=== PATIENT | male | born 1965 | race Caucasian/White ===

== ENCOUNTER → 2017-01-16 | Outpatient (CLI) | payer MEDICAID ==
[~2017-01-16] MED LIST: ASPI-496 PO; CARV-39 PO; CYCL5TAB PO; FURO20TA3 PO; HYDR-3307 PO; LISI-170 PO; POTA10TA5 PO; PRAV80TA2 PO
[2017-01-16 12:11] LABS: HEMOGLOBIN 12.4 g/dL (13.7-18.0)
[2017-01-16 12:20] LABS: ASPARTATE AMINO TRANSFERASE 22 U/L (15-37); BLOOD UREA NITROGEN 14 mg/dL (7-18)
== END | disposition home or self-care (01) ==
LOC: STAR 10:50
PROVIDERS: ATTEND Orthopaedic Surgery Orthopaedic Surgery of the Spine
DX: Z01.818 Encounter for other preprocedural examination (principal); J98.6 Disorders of diaphragm; M48.02 Spinal stenosis, cervical region; Z86.79 Personal history of other diseases of the circulatory system
CPT/HCPCS: 36415; 71020; 80053; 81003; 85025; 85610; 85730; 93005

== ENCOUNTER 2018-01-07 09:35 | Observation (INO) | payer MEDICAID, OTHER ==
[~2018-01-07] VITALS: Ht 188 cm; Wt 159.8 kg
[~2018-01-07 09:35] MED LIST changes: +CEPH-368 PO
[2018-01-07] MEDS ORDERED: SODIUM CHLORIDE 0.9% 1,000 ML IV ONE (10:03)
[2018-01-07 10:11] VITALS: BP 125/66
[2018-01-07] MEDS ORDERED: ASPI-621 PO (10:16)
[2018-01-07] MEDS ORDERED: UBID100C41 PO (10:16)
[2018-01-07] MEDS ORDERED: ISOS30TA8 PO (10:18)
[2018-01-07] MEDS ORDERED: PLEASE ENTER HEIGHT AND WEIGHT MC SCH (10:30)
[2018-01-07] MEDS ORDERED: MIDAZOLAM 1 MG/ML, 5ML ONE (10:53)
[2018-01-07] MEDS ORDERED: BIVALIRUDIN 250 MG ONE ×2 (10:53→11:15)
[2018-01-07] MEDS ORDERED: VERAPAMIL 2.5 MG/ML, 2ML ONE (10:53)
[2018-01-07] MEDS ORDERED: FENTANYL PF 100 MCG/2ML ONE (10:53)
[2018-01-07] MEDS ORDERED: TICAGRELOR 90 MG TABLET ONE (10:53)
[2018-01-07] MEDS ORDERED: HEPARIN 1,000 UNITS/ML, 10ML ONE (10:53)
[2018-01-07] MEDS ORDERED: LIDOCAINE 2%, 20ML ONE (10:54)
[2018-01-07] MEDS ORDERED: DIPHENHYDRAMINE 50 MG/ML, 1ML ONE (11:01)
[2018-01-07] MEDS ORDERED: MIDAZOLAM 1 MG/ML, 2ML ONE (11:15)
[2018-01-07 14:30] VITALS: BP 110/61
[2018-01-07 19:40] VITALS: BP 120/69
[2018-01-07] MEDS: CARVEDILOL 25 MG TABLET PO SCH (20:43)
[2018-01-07] MEDS ORDERED: PRAVASTATIN 40 MG TABLET PO SCH (21:00)
[2018-01-07] MEDS ORDERED: TICAGRELOR 90 MG TABLET PO SCH (21:00)
[2018-01-08 01:46] VITALS: BP 108/64
[2018-01-08 07:32] VITALS: BP 131/84
[2018-01-08] MEDS ORDERED: NITR0.4T28 SL (08:22)
[2018-01-08] MEDS ORDERED: CLOP75TA52 PO (08:22)
[2018-01-08] MEDS ORDERED: CLOPIDOGREL 300 MG TABLET PO ONE (08:30)
[2018-01-08] MEDS ORDERED: ISOSORBIDE MONONITRATE ER 30 MG TABLET PO SCH (09:00)
[2018-01-08] MEDS ORDERED: LISINOPRIL 20 MG TABLET PO SCH (09:00)
[2018-01-08] MEDS ORDERED: ASPIRIN 81 MG TABLET EC PO SCH (09:00)
[2018-01-08] MEDS ORDERED: FUROSEMIDE 20 MG TABLET PO SCH (09:00)
[2018-01-08] MEDS ORDERED: CLOPIDOGREL 75 MG TABLET PO SCH (09:00)
[2018-01-08] MEDS ORDERED: POTASSIUM CHLORIDE 10 MEQ TABLET.ER PO SCH (09:00)
[2018-01-08] MEDS: CARVEDILOL 25 MG TABLET PO SCH (09:22)
== END 2018-01-08 10:14 | disposition home or self-care (01) ==
LOC: CACL 09:35 → ORIP 11:59 → 5SO 12:32 → DCLOUNGE 01-08 09:55
PROVIDERS: ADMIT Internal Medicine Cardiovascular Disease; ATTEND Internal Medicine Cardiovascular Disease
DX: I25.10 Atherosclerotic heart disease of native coronary artery without angina pectoris (principal); I10 Essential (primary) hypertension; E78.00 Pure hypercholesterolemia, unspecified; R60.0 Localized edema
CPT/HCPCS: 93458; 99156; 99157; C1725; C1769; C1874; C1887; C1894; C9600; C9601; G0378; J0583; J1200; J1644; J2250; J3010; J3490; Q9967

== ENCOUNTER → 2020-08-10 | Outpatient (CLI) | payer BC, OTHER ==
[~2020-08-10] MED LIST changes: +ASPI81TA45 PO; +CLOP75TA52 PO; +HYDR-3246 PO; -HYDR-3307 PO; +ISOS30TA8 PO; +NITR0.4T28 SL; +UBID100C41 PO
== END | disposition home or self-care (01) ==
LOC: CVU 06:12
PROVIDERS: ATTEND Internal Medicine Cardiovascular Disease
DX: I83.91 Asymptomatic varicose veins of right lower extremity (principal); R60.0 Localized edema
CPT/HCPCS: 93970